=== PATIENT | male | born 1940 | race Caucasian/White ===

== ENCOUNTER 2017-01-09 13:30 | Inpatient (IN) | payer OTHER ==
[2017-01-09] MEDS ORDERED: MAGNESIUM HYDROXIDE 30 ML UDCUP PO PRN (17:18)
[2017-01-09] MEDS ORDERED: LORazepam 0.5 MG TAB PO PRN (17:18)
[2017-01-09] MEDS ORDERED: ACETAMINOPHEN 325 MG TAB PO PRN (17:18)
[2017-01-09] MEDS ORDERED: MAG HYDROX/AL HYDROX/SIMETH 30 ML UDCUP PO PRN (17:18)
--- NOTE | 2017-01-09 18:36 | BAPA ---
[f rep st] ADMISSION PSYCHIATRIC ASSESSMENT DATE OF SERVICE: 01/09/2017 REASON FOR ADMISSION: The patient is a 76-year-old male, well known to us from previous ad missions, as well as ongoing outpatient maintenance ECT treatment. He presented last week with his w matthew, stating that he had been slipping into a familiar nearly catatonic state, where he will withdraw , quit talking, have trouble forming thoughts, and not take care of himself. He received 2 ECT treat ments last week, which seemed to help, but then over the weekend he has further declined. His s tates that on Monday, the date of his last ECT treatment, he was very flat and did not speak from Mon until Monday morning. She states that he was not engaging, would not answer questions, and she h ad trouble getting him to eat or bathe himself. On Monday morning, he got up, seemed somewhat better , was minimally conversant and mowed the lawn. Later in the day, he rapidly declined, however, and b ecame noncommunicative again. Today on interview, he is unable to describe how he feels, does not ma ke meaningful eye contact, is notably tremulous, and has extreme difficulty making any decisions. Hi s indicates that she believes he needs to be hospitalized, as these are the symptoms he has exhi bited in the past when he has entered a catatonic state. The patient is agreeable to hospitalization at this time, stating, "I'll do whatever she says." PAST PSYCHIATRIC HISTORY: The patient's most recent hospitalization was here from 12/11/15 to under my care at that time. He was exhibiting similar symptoms. At that time, his stressor was h is undergoing a back surgery, which he was extremely worried about. This time, there appear to be no specific stressors. He has a history of multiple hospitalizations in [place] [facility] throughout his life and has had maintenance ECT for approximately the last 7 years. He has been a patient of mine at the [facility] for the last 3-1/2 years, doing every 3- to 5-week m aintenance ECT. ALLERGIES: No known medical allergies. CURRENT MEDICATIONS: Aspirin 81 mg daily, vitamin D 2000 units daily, Lamictal 100 mg q.h.s., Ativan 0.25 mg in the morning and 0.5 mg in the evening, nortriptyline 100 mg q.h.s., bicarb one daily, Tyson max 0.4 mg daily, valsartan-hydrochlorothiazide one half daily. PAST MEDICAL HISTORY: Significant for hypertension and benign prostatic hypertrophy. SOCIAL HISTORY: The patient has been for 23 years, has 3 children of his own. His has 2 sons, who live locally and are their primary supports. 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 He moved to [place] in 2012 to be closer to his wi fe's family. SUBSTANCE ABUSE HISTORY: Noncontributory. FAMILY HISTORY: Noncontributory. ADMISSION LABS: Pending. MENTAL STATUS EXAMINATION: A somewhat disheveled, though healthy-appearing male. He inter acts poorly, maintaining poor eye contact and having extreme difficulty answering questions. His aff ect is blunted, stable. His mood is described as "not too good." His thought process is somewhat di sorganized, struggling to give goal-directed answers to questions. His thought content reveals no ov ert psychosis. He is alert and oriented to person, place, time, and situation, and his sensorium is clear, though he has a notable delay in response. His intellect is at least average, as evidenced by his fund of knowledge, vocabulary, educational and occupational histories. He denies any thoughts o f suicide, homicide, or violence. Insight and judgment appear to be good. IMPRESSION: Bipolar I disorder, most recent episodes mixed, with psychosis, possible early catatonia , hypertension, benign prostatic hypertrophy, recurrent illness, chronic illness. The patient is a pleasant 76-year-old male, well known to me from previous inpatient and ou tpatient treatments. He presents at this time with burgeoning catatonia, and I agree with his t hat inpatient hospitalization and abbreviated acute course of ECT is his best treatment option. The patient is agreeable to this. PLAN: 1. Admit to the behavioral health services inpatient unit on a voluntary basis. 2. Continue the patient's outpatient medications as previously prescribed. 3. Initiate acute course ECT treatment this week, at least Monday, Monday, Monday, and see how th e patient does. May continue for another week if no adequate response. ESTIMATED LENGTH OF STAY: 7-14 days. /[id number]/MODL
--- NOTE | 2017-01-09 18:36 | BAPA ---
[f rep st] ADMISSION PSYCHIATRIC ASSESSMENT DATE OF SERVICE: 01/09/2017 REASON FOR ADMISSION: The patient is a 76-year-old male, well known to us from previous ad missions, as well as ongoing outpatient maintenance ECT treatment. He presented last week with his w matthew, stating that he had been slipping into a familiar nearly catatonic state, where he will withdraw , quit talking, have trouble forming thoughts, and not take care of himself. He received 2 ECT treat ments last week, which seemed to help, but then over the weekend he has further declined. His s tates that on Monday, the date of his last ECT treatment, he was very flat and did not speak from Mon until Monday morning. She states that he was not engaging, would not answer questions, and she h ad trouble getting him to eat or bathe himself. On Monday morning, he got up, seemed somewhat better , was minimally conversant and mowed the lawn. Later in the day, he rapidly declined, however, and b ecame noncommunicative again. Today on interview, he is unable to describe how he feels, does not ma ke meaningful eye contact, is notably tremulous, and has extreme difficulty making any decisions. Hi s indicates that she believes he needs to be hospitalized, as these are the symptoms he has exhi bited in the past when he has entered a catatonic state. The patient is agreeable to hospitalization at this time, stating, "I'll do whatever she says." PAST PSYCHIATRIC HISTORY: The patient's most recent hospitalization was here from 12/11/15 to under my care at that time. He was exhibiting similar symptoms. At that time, his stressor was h is undergoing a back surgery, which he was extremely worried about. This time, there appear to be no specific stressors. He has a history of multiple hospitalizations [place] [facility] throughout his life and has had maintenance ECT for approximately the last 7 years. He has been a patient of mine at the [facility] for the last 3-1/2 years, doing every 3- to 5-week m aintenance ECT. ALLERGIES: No known medical allergies. CURRENT MEDICATIONS: Aspirin 81 mg daily, vitamin D 2000 units daily, Lamictal 100 mg q.h.s., Ativan 0.25 mg in the morning and 0.5 mg in the evening, nortriptyline 100 mg q.h.s., bicarb one daily, Tyson max 0.4 mg daily, valsartan-hydrochlorothiazide one half daily. PAST MEDICAL HISTORY: Significant for hypertension and benign prostatic hypertrophy. SOCIAL HISTORY: The patient has been for 23 years, has 3 children of his own. His has 2 sons, who live locally and are their primary supports. 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 He moved to [place] in 2012 to be closer to his wi fe's family. SUBSTANCE ABUSE HISTORY: Noncontributory. FAMILY HISTORY: Noncontributory. ADMISSION LABS: Pending. MENTAL STATUS EXAMINATION: A somewhat disheveled, though healthy-appearing male. He inter acts poorly, maintaining poor eye contact and having extreme difficulty answering questions. His aff ect is blunted, stable. His mood is described as "not too good." His thought process is somewhat di sorganized, struggling to give goal-directed answers to questions. His thought content reveals no ov ert psychosis. He is alert and oriented to person, place, time, and situation, and his sensorium is clear, though he has a notable delay in response. His intellect is at least average, as evidenced by his fund of knowledge, vocabulary, educational and occupational histories. He denies any thoughts o f suicide, homicide, or violence. Insight and judgment appear to be good. IMPRESSION: Bipolar I disorder, most recent episodes mixed, with psychosis, possible early catatonia , hypertension, benign prostatic hypertrophy, recurrent illness, chronic illness. The patient is a pleasant 76-year-old male, well known to me from previous inpatient and ou tpatient treatments. He presents at this time with burgeoning catatonia, and I agree with his t hat inpatient hospitalization and abbreviated acute course of ECT is his best treatment option. The patient is agreeable to this. PLAN: 1. Admit to the behavioral health services inpatient unit on a voluntary basis. 2. Continue the patient's outpatient medications as previously prescribed. 3. Initiate acute course ECT treatment this week, at least Monday, Monday, Monday, and see how th e patient does. May continue for another week if no adequate response. ESTIMATED LENGTH OF STAY: 7-14 days. /[id number]/MODL
[2017-01-09] MEDS: NORTRIPTYLINE HCL 50 MG CAP PO SCH (20:54)
[2017-01-09] MEDS: lamoTRIgine 100 MG TAB PO SCH (20:55)
[2017-01-09] MEDS: LORazepam 1 MG TAB PO SCH (20:55)
[2017-01-09] MEDS: OLANZapine 10 MG TAB PO SCH (20:55)
[2017-01-09] MEDS: ASPIRIN 81 MG CHEWABLE TAB PO SCH (20:55)
[2017-01-10 08:22] LABS: PLATELET COUNT 257 10^3/uL (150-400)
[2017-01-10] MEDS: LORazepam 1 MG TAB PO SCH ×2 (08:45→18:42)
[2017-01-10] MEDS: TAMSULOSIN HCL 0.4 MG CAP PO SCH (08:45)
--- NOTE | 2017-01-10 14:01 | SOAPPROG ---
SOAP Progress Note Assessment/Plan: Assessment: Plan: 01/10/17 14:03 Remains quite ill with soft signs of catatonia. Will continue ECT, monitor closely. If no proximal improvement will hold Zyprexa. Subjective: Pt seen, discussed with staff. Sitting in his room, looking at his journal. He is engaging, but clearly struggling to follow conversation. He asks several tangential questions such as, "How is ECT today?" and "We have to wind our way to the clinic from here." He offers no c/o's. Slept adequately last night. Spending most of his time in his room. Struggles to interact appropriately with others. He attempts to write down verbatim what I say, though can only retain one word of each sentence. Objective: Vital Signs Temp Pulse Resp BP Pulse Ox 36.7 C 96 16 155/78 H 93 01/10/17 06:00 01/10/17 06:00 01/10/17 06:00 01/10/17 06:00 01/10/17 06:00 Laboratory Results 01/10/17 06:00 01/10/17 06:00 MSE: Notable psychomotor retardation with diffuse tremors. Eye contact is intermittent. Affect is constricted, stable. Mood is "not too good." TP is linear for brief periods, but he exhibits notable blocking and delay. - Time Spent With Patient Time Spent With Patient: 25" ICD10 Worksheet Patient Problems: Problems Problem Status Onset Bipolar I disorder depressed with catatonic features Acute
[2017-01-10] MEDS: NORTRIPTYLINE HCL 50 MG CAP PO SCH (18:42)
[2017-01-10] MEDS: lamoTRIgine 100 MG TAB PO SCH (18:43)
[2017-01-10] MEDS: OLANZapine 10 MG TAB PO SCH (18:43)
[2017-01-10] MEDS: ASPIRIN 81 MG CHEWABLE TAB PO SCH (18:43)
[2017-01-11] MEDS ORDERED: NS 1,000 ML IV ONE (04:00)
[2017-01-11] MEDS ORDERED: THEOPHYLLINE ORAL SOLUTION 80 MG/15 ML UDCUP PO ONE (04:00)
[2017-01-11] MEDS ORDERED: CITRIC ACID/SODIUM CITRATE 30 ML UDCUP PO ONE (04:00)
[2017-01-11] MEDS ORDERED: LIDOCAINE 2% 5 ML SDV ID ONE (04:00)
[2017-01-11] MEDS ORDERED: ONDANSETRON DISINTEGRATING 4 MG TAB PO ONE (04:00)
[2017-01-11] MEDS: TAMSULOSIN HCL 0.4 MG CAP PO SCH (10:50)
[2017-01-11] MEDS: LORazepam 1 MG TAB PO SCH ×2 (10:50→21:04)
--- NOTE | 2017-01-11 15:24 | BCON ---
[f rep st] BEHAVIORAL HEALTH CONSULTATION DATE OF CONSULTATION: 01/11/2017 REFERRING PHYSICIAN: Tom Vargas MD REASON FOR REFERRAL: Medical clearance for inpatient behavioral [facility] stay. HISTORY OF PRESENT ILLNESS: This patient was recently discharged from inpatient behavioral health on 12/21/2016. He returned to the emergency department yesterday, brought by his , as he had decli carissa function and, as described by the psychiatrist, had "burgeoning catatonia." He was evaluated by the mental health team, was admitted for further psychiatric care, and has had 1 ECT treatment today . Currently, he reports he feels much better and he is without any acute complaints. PAST MEDICAL HISTORY: 1. Bipolar disorder. 2. Hypertension. 3. Benign prostatic hypertrophy. PAST SURGICAL HISTORY: He reports a history of hernia surgery. MEDICATIONS: Prior to admission: 1. Multivitamin daily. 2. Lorazepam 0.5 mg daily p.r.n., and 0.5 mg q.h.s. 3. Lamotrigine 100 mg p.o. q.h.s. 4. Olanzapine 10 mg p.o. q.h.s. 5. Aspirin 81 mg p.o. q.h.s. 6. Nortriptyline 100 mg p.o. q.h.s. 7. Valsartan/hydrochlorothiazide 80/12.5 one-half tablet p.o. daily. 8. Tamsulosin 0.4 mg p.o. daily. 9. Lorazepam 1 mg p.o. daily. 10. Cholecalciferol 2000 units p.o. daily. ALLERGIES: No known drug allergies. SOCIAL HISTORY: He is retired. He lives with his . He and has moved to [place] to be [place] to her adult children. He is a former smoker but does not smoke, and he does not use alcohol. FAMILY HISTORY: Noncontributory. REVIEW OF SYSTEMS: He denies snoring. He reports he sleeps well overall, but has nocturia x3. He i s not in pain. He denies cough or dyspnea, fevers or chills, weight change. He reports that at a re cent physical exam, his doctor noted an irregular heartbeat, but said that it was not significant. H e does not feel palpitations. He has no chest pain. Otherwise, a 10-point review of systems is nega tive. PHYSICAL EXAMINATION: VITAL SIGNS: Blood pressure is 112/63, heart rate is 85, respiratory rate is 16, oxygen saturation is 95% on room air, temperature is 36.7 degrees centigrade. Weight is 87.7 kg for a body mass index of 27.1. GENERAL: This is an overweight elderly man who appears his chronolog ic age, cooperative and in no acute distress. HEENT: Extraocular movements are intact. Pupils are equal, round, and reactive to light. Mucous membranes are moist. Dentition is in good condition. H cisco has a mildly crowded airway, Mallampati class 1. NECK: Supple. HEART: Regular rate and rhythm w ith no murmurs, rubs, or gallops; mildly tachycardic. LUNGS: Clear to auscultation bilaterally. AB DOMEN: Benign. EXTREMITIES: No cyanosis, clubbing, or edema. NEUROLOGIC: He is alert. Orientati on was not checked. He has some word substitution and some word-finding difficulty. Cranial nerves 2 through 12 are grossly intact. No focal weakness. Sensation is intact to light touch. Gait is wi thin normal limits. He has a resting tremor greater on the left upper extremity than the right upper extremity. LABORATORY STUDIES: Drawn in the emergency department: CBC was overall within normal limits. He gregorio d a slight decrement of absolute lymphocytes and a slight increase in absolute monocytes of no clinic al significance. Serum chemistry revealed normal renal function, liver function, and electrolytes. Total protein was slightly low at 6.0 with a normal albumin. ASSESSMENT/RECOMMENDATIONS: 1. Bipolar disorder, undergoing electroconvulsive therapy per Psychiatry. 2. Hypertension appears to be adequately controlled. 3. Benign prostatic hypertrophy with nocturia x3. I have increased his tamsulosin from 0.4 to 0.8 m g. Observe for hypotension and observe for efficacy. If he continues to have nocturia x3, would red uce the dose to 0.4 mg. Of note, he is taking a large dose of nortriptyline, which can cause bladder emptying difficulty; however, I will leave any decisions regarding psychiatric medications to the di scretion of Psychiatry. 4. Self report of a cardiac dysrhythmia. He has a regular rhythm on examination today. Consider re peat EKG, especially as he is undergoing electroconvulsive therapy. I see no medical contraindications to this patient's continued stay [facility] or to any psychiatric medications or procedures. Thank you very much for including me in the care of this patient and please do not hesitate to contac t me or the hospitalists service should there be need for further medical evaluation. /[id number]/MODL
--- NOTE | 2017-01-11 17:34 | SOAPPROG ---
SOAP Progress Note Assessment/Plan: Assessment: Plan: 01/10/17 14:03 Remains quite ill with soft signs of catatonia. Will continue ECT, monitor closely. If no proximal improvement will hold Zyprexa. 01/11/17 17:34 Bipolar: remains in a severe mixed state with some evidence of early catatonia. Will CCM. Subjective: Pt seen, discussed with staff. Remains withdrawn, mute, internally focused, perseverative, delayed. He is more interactive, spontaneous and fluent this morning but remains significantly short of baseline. Offers no c/o's. Underwent RUL UBP ECT without complication. Objective: Vital Signs Temp Pulse Resp BP Pulse Ox 36.7 C 85 16 112/63 95 01/11/17 09:10 01/11/17 09:10 01/11/17 09:10 01/11/17 09:10 01/11/17 09:10 Laboratory Results 01/10/17 06:00 01/10/17 06:00 MSE: Calm, marginally interactive. Activity is slightly increased with notable tremor, restlessness and fidgeting. Affect is blunted to flat. Mood is "not too good." Eye contact is poor, tending to stare straight ahead. Remains internally focused, delayed in response to questions. No overt psychosis noted. 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
[2017-01-11] MEDS: NORTRIPTYLINE HCL 50 MG CAP PO SCH (21:03)
[2017-01-11] MEDS: ASPIRIN 81 MG CHEWABLE TAB PO SCH (21:04)
[2017-01-11] MEDS: lamoTRIgine 100 MG TAB PO SCH (21:04)
[2017-01-11] MEDS: OLANZapine 10 MG TAB PO SCH (21:04)
[2017-01-12] MEDS: LORazepam 1 MG TAB PO SCH ×2 (09:23→16:40)
[2017-01-12] MEDS: TAMSULOSIN HCL 0.4 MG CAP PO SCH (09:23)
[2017-01-12] MEDS: NORTRIPTYLINE HCL 50 MG CAP PO SCH (16:40)
[2017-01-12] MEDS: lamoTRIgine 100 MG TAB PO SCH (16:40)
[2017-01-12] MEDS: OLANZapine 10 MG TAB PO SCH (16:40)
[2017-01-12] MEDS: ASPIRIN 81 MG CHEWABLE TAB PO SCH (16:41)
--- NOTE | 2017-01-12 21:34 | SOAPPROG ---
SOAP Progress Note Assessment/Plan: Assessment: Plan: 01/10/17 14:03 Remains quite ill with soft signs of catatonia. Will continue ECT, monitor closely. If no proximal improvement will hold Zyprexa. 01/11/17 17:34 Bipolar: remains in a severe mixed state with some evidence of early catatonia. Will CCM. 01/12/17 21:34 Bipolar: Improving with ECT. CCM. Subjective: Pt seen, discussed with staff and pt's . He is more alert, interact and appropriate today. notes significant improvement since admission. Less delayed, more spontaneous. Objective: Vital Signs Temp Pulse Resp BP Pulse Ox 38.4 C H 79 18 123/73 H 95 01/12/17 16:00 01/12/17 16:00 01/12/17 16:00 01/12/17 16:00 01/12/17 16:00 Laboratory Results 01/10/17 06:00 01/10/17 06:00 - Time Spent With Patient Time Spent With Patient: 25" ICD10 Worksheet Patient Problems: Problems Problem Status Onset Bipolar I disorder depressed with catatonic features Acute
[2017-01-13] MEDS ORDERED: LIDOCAINE 2% 5 ML SDV ID ONE (05:00)
[2017-01-13] MEDS ORDERED: ONDANSETRON DISINTEGRATING 4 MG TAB PO ONE (05:00)
[2017-01-13] MEDS ORDERED: CITRIC ACID/SODIUM CITRATE 30 ML UDCUP PO ONE (05:00)
[2017-01-13] MEDS ORDERED: THEOPHYLLINE ORAL SOLUTION 80 MG/15 ML UDCUP PO ONE ×2 (05:00→09:30)
[2017-01-13] MEDS ORDERED: NS 1,000 ML IV ONE (05:00)
[2017-01-13] MEDS ORDERED: MIDAZOLAM 2 MG/2 ML VIAL ONE (06:02)
[2017-01-13] MEDS ORDERED: GLYCOPYRROLATE 0.2 MG/1 ML VIAL ONE (06:02)
[2017-01-13] MEDS ORDERED: ONDANSETRON 4 MG/2 ML VIAL ONE (06:02)
[2017-01-13] MEDS ORDERED: fentaNYL 100 MCG/2 ML INJ ONE (06:02)
[2017-01-13] MEDS ORDERED: ETOMIDATE 20 MG/10 ML VIAL ONE (06:02)
[2017-01-13] MEDS ORDERED: ROCURONIUM 50 MG/5 ML VIAL ONE (06:03)
[2017-01-13] MEDS ORDERED: SUCCINYLCHOLINE CHLORIDE 200 MG/10 ML VIAL ONE (06:03)
[2017-01-13] MEDS: TAMSULOSIN HCL 0.4 MG CAP PO SCH (14:37)
[2017-01-13] MEDS: LORazepam 1 MG TAB PO SCH ×2 (14:40→20:23)
[2017-01-13] MEDS: NORTRIPTYLINE HCL 50 MG CAP PO SCH (20:22)
[2017-01-13] MEDS: lamoTRIgine 100 MG TAB PO SCH (20:23)
[2017-01-13] MEDS: ASPIRIN 81 MG CHEWABLE TAB PO SCH (20:23)
[2017-01-13] MEDS: OLANZapine 10 MG TAB PO SCH (20:23)
--- NOTE | 2017-01-13 23:09 | SOAPPROG ---
SOAP Progress Note Assessment/Plan: Assessment: Plan: 01/10/17 14:03 Remains quite ill with soft signs of catatonia. Will continue ECT, monitor closely. If no proximal improvement will hold Zyprexa. 01/11/17 17:34 Bipolar: remains in a severe mixed state with some evidence of early catatonia. Will [facility]. 01/12/17 21:34 Bipolar: Improving with ECT. [facility]. 01/13/17 23:10 Bipolar: Continued improvement. I agree that a few more days to allow more solid recovery is in patient's best interest. Will treat Monday and reassess. Subjective: Pt seen, discussed with staff. Reports feeling "a lot better". Pt's and step-son see him as improving as well, though believe he could benefit from staying longer in the hospital to avoid any backsliding in re: risk for linda catatonia. Pt agreeable to staying if needed. Underwent ECT with no complications. Objective: Vital Signs Temp Pulse Resp BP Pulse Ox 36.7 C 68 12 133/84 H 92 01/13/17 16:00 01/13/17 16:00 01/13/17 13:21 01/13/17 16:00 01/13/17 13:21 Laboratory Results 01/10/17 06:00 01/10/17 06:00 MSE: Calm, coop, appropriately interactive. Affect is brighter, stalbe, approp. Mood is "better." TP generallly linear, less derailment or blocking. TC reveals no psychosis. A/C much better. 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
--- NOTE | 2017-01-13 23:09 | SOAPPROG ---
SOAP Progress Note Assessment/Plan: Assessment: Plan: 01/10/17 14:03 Remains quite ill with soft signs of catatonia. Will continue ECT, monitor closely. If no proximal improvement will hold Zyprexa. 01/11/17 17:34 Bipolar: remains in a severe mixed state with some evidence of early catatonia. Will [facility]. 01/12/17 21:34 Bipolar: Improving with ECT. [facility]. 01/13/17 23:10 Bipolar: Continued improvement. I agree that a few more days to allow more solid recovery is in patient's best interest. Will treat Monday and reassess. Subjective: Pt seen, discussed with staff. Reports feeling "a lot better". Pt's and step-son see him as improving as well, though believe he could benefit from staying longer in the hospital to avoid any backsliding in re: risk for linda catatonia. Pt agreeable to staying if needed. Underwent ECT with no complications. Objective: Vital Signs Temp Pulse Resp BP Pulse Ox 36.7 C 68 12 133/84 H 92 01/13/17 16:00 01/13/17 16:00 01/13/17 13:21 01/13/17 16:00 01/13/17 13:21 Laboratory Results 01/10/17 06:00 01/10/17 06:00 MSE: Calm, coop, appropriately interactive. Affect is brighter, stalbe, approp. Mood is "better." TP generallly linear, less derailment or blocking. TC reveals no psychosis. A/C much better. 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
--- NOTE | 2017-01-13 23:09 | SOAPPROG ---
SOAP Progress Note Assessment/Plan: Assessment: Plan: 01/10/17 14:03 Remains quite ill with soft signs of catatonia. Will continue ECT, monitor closely. If no proximal improvement will hold Zyprexa. 01/11/17 17:34 Bipolar: remains in a severe mixed state with some evidence of early catatonia. Will [facility]. 01/12/17 21:34 Bipolar: Improving with ECT. [facility]. 01/13/17 23:10 Bipolar: Continued improvement. I agree that a few more days to allow more solid recovery is in patient's best interest. Will treat Monday and reassess. Subjective: Pt seen, discussed with staff. Reports feeling "a lot better". Pt's and step-son see him as improving as well, though believe he could benefit from staying longer in the hospital to avoid any backsliding in re: risk for linda catatonia. Pt agreeable to staying if needed. Underwent ECT with no complications. Objective: Vital Signs Temp Pulse Resp BP Pulse Ox 36.7 C 68 12 133/84 H 92 01/13/17 16:00 01/13/17 16:00 01/13/17 13:21 01/13/17 16:00 01/13/17 13:21 Laboratory Results 01/10/17 06:00 01/10/17 06:00 MSE: Calm, coop, appropriately interactive. Affect is brighter, stalbe, approp. Mood is "better." TP generallly linear, less derailment or blocking. TC reveals no psychosis. A/C much better. 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
[2017-01-14] MEDS: TAMSULOSIN HCL 0.4 MG CAP PO SCH (09:07)
[2017-01-14] MEDS: LORazepam 1 MG TAB PO SCH ×2 (09:07→20:38)
--- NOTE | 2017-01-14 12:23 | SOAPPROG ---
SOAP Progress Note Assessment/Plan: Assessment: 76yo CM, w/BMD, , with long hx maintenance ECT, admitted in mixed state with possible early catatonic features 01/14/17 12:30 per staff, slept 8hr. had ECT yesterday. pleasant, friendly and more talkative. on interview, reports doing well. feels "50 to 75%" better than on admission. reports plan is for ECT on 01/16 then d/c home with . denied any medication s /e, no physical complaints, and no problems post-ECT except had headache, no longer present. sleeping "very well". joined. reports pt doing "much better". asks about if any med changes on d/ c from prior to admission. referred to d/w primary psychiatrist during week. hopeful for d/c home as planned 01/16. both express being very pleased with their care/treatment here. MSE: engaging. cooperative, casually dressed, neatly groomed bernal, speech nml rate/vol, good ec, mood "pretty good", affect full range. denied psychotic sxs, no si/hi or any delusional/paranoid thoughts. i/j seem intact. PLAN: cont current meds and plan for ECT on 01/16, and likely d/c 01/16 Objective: Vital Signs Temp Pulse Resp BP Pulse Ox 36.6 C 97 16 125/60 H 94 01/14/17 00:30 01/14/17 00:30 01/14/17 00:30 01/14/17 00:30 01/14/17 00:30 Laboratory Results 01/10/17 06:00 01/10/17 06:00 Medications Generic Name Dose Route Start Last Admin Trade Name Freq PRN Reason Stop Dose Admin Lorazepam 1 mg 01/09/17 21:00 01/14/17 09:07 Ativan PO 07/08/17 20:59 1 mg BID SEAN Nortriptyline HCl 100 mg 01/09/17 21:00 01/13/17 20:22 Pamelor PO 07/08/17 20:59 100 mg HS SEAN Olanzapine 10 mg 01/09/17 21:00 01/13/17 20:23 Olanzapine PO 07/08/17 20:59 10 mg HS SEAN Tamsulosin HCl 0.8 mg 01/11/17 14:17 01/14/17 09:07 Flomax PO 07/09/17 08:59 0.8 mg DAILY SEAN Lamotrigine 100 mg 01/09/17 21:00 01/13/17 20:23 Lamictal PO 07/08/17 20:59 100 mg HS SEAN Aspirin 81 mg 01/09/17 21:00 01/13/17 20:23 Aspirin PO 07/08/17 20:59 81 mg HS SEAN - Time Spent With Patient Time Spent With Patient: 25min - Pending Discharge Pending Discharge Within 24 Hours: No Pending Discharge Within 48 Hours: No ICD10 Worksheet Patient Problems: Problems Problem Status Onset Bipolar I disorder depressed with catatonic features Acute
[2017-01-14] MEDS: NORTRIPTYLINE HCL 50 MG CAP PO SCH (20:38)
[2017-01-14] MEDS: OLANZapine 10 MG TAB PO SCH (20:38)
[2017-01-14] MEDS: ASPIRIN 81 MG CHEWABLE TAB PO SCH (20:38)
[2017-01-14] MEDS: lamoTRIgine 100 MG TAB PO SCH (20:38)
[2017-01-15] MEDS: TAMSULOSIN HCL 0.4 MG CAP PO SCH (09:21)
[2017-01-15] MEDS: LORazepam 1 MG TAB PO SCH ×2 (09:22→19:07)
[2017-01-15] MEDS: OLANZapine 10 MG TAB PO SCH (19:07)
[2017-01-15] MEDS: ASPIRIN 81 MG CHEWABLE TAB PO SCH (19:07)
[2017-01-15] MEDS: NORTRIPTYLINE HCL 50 MG CAP PO SCH (19:07)
[2017-01-15] MEDS: lamoTRIgine 100 MG TAB PO SCH (19:08)
--- NOTE | 2017-01-16 01:47 | SOAPPROG ---
SOAP Progress Note Assessment/Plan: Assessment: 76yo CM, w/BMD, , with long hx maintenance ECT, admitted in mixed state with possible early catatonic features 01/14/17 12:30 per staff, slept 8hr. had ECT yesterday. pleasant, friendly and more talkative. on interview, reports doing well. feels "50 to 75%" better than on admission. reports plan is for ECT on 01/16 then d/c home with . denied any medication s /e, no physical complaints, and no problems post-ECT except had headache, no longer present. sleeping "very well". joined. reports pt doing "much better". asks about if any med changes on d/ c from prior to admission. referred to d/w primary psychiatrist during week. hopeful for d/c home as planned 01/16. both express being very pleased with their care/treatment here. MSE: engaging. cooperative, casually dressed, neatly groomed bernal, speech nml rate/vol, good ec, mood "pretty good", affect full range. denied psychotic sxs, no si/hi or any delusional/paranoid thoughts. i/j seem intact. PLAN: cont current meds and plan for ECT on 01/16, and likely d/c 01/1601/15/17 12:41 per staff, slept 9hr. has been generally isolative, but milieu has been intense. didn't attend group this AM. MSE: calm, cooperative, good eye contact, nml psychom activity, neat/groomed, engaging, nml speech rate/vol. mood "doing well", affect euthymic, thoughts linear, no evid of psychosis, denied any si/hi or ah/vh. i/j seem intact. denied physical complaints or any med s/e although reports was constipated, but this resolved recently. 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
[2017-01-16] MEDS ORDERED: NS 1,000 ML IV ONE (06:00)
[2017-01-16] MEDS ORDERED: ONDANSETRON DISINTEGRATING 4 MG TAB PO ONE (06:00)
[2017-01-16] MEDS ORDERED: CITRIC ACID/SODIUM CITRATE 30 ML UDCUP PO ONE (06:00)
[2017-01-16] MEDS ORDERED: THEOPHYLLINE ORAL SOLUTION 80 MG/15 ML UDCUP PO ONE (06:00)
[2017-01-16] MEDS ORDERED: LIDOCAINE 2% 5 ML SDV ID ONE (06:00)
[2017-01-16] MEDS ORDERED: fentaNYL 100 MCG/2 ML INJ ONE (09:07)
[2017-01-16] MEDS ORDERED: MIDAZOLAM 2 MG/2 ML VIAL ONE (09:07)
[2017-01-16] MEDS ORDERED: ETOMIDATE 20 MG/10 ML VIAL ONE (09:07)
[2017-01-16] MEDS ORDERED: CITRIC ACID/SODIUM CITRATE 30 ML UDCUP ONE (09:07)
[2017-01-16] MEDS ORDERED: ONDANSETRON DISINTEGRATING 4 MG TAB ONE (09:07)
[2017-01-16] MEDS ORDERED: SUCCINYLCHOLINE CHLORIDE 200 MG/10 ML VIAL ONE (09:08)
[2017-01-16 10:20] VITALS: BP 162/88; PULSE 95; RESP 20; TEMP 97.5; O2SAT 95
[2017-01-16] MEDS: TAMSULOSIN HCL 0.4 MG CAP PO SCH (11:33)
[2017-01-16] MEDS: LORazepam 1 MG TAB PO SCH (11:46)
== END 2017-01-16 12:35 | disposition home or self-care (01) | DRG 885 ==
LOC: BBEH 13:30
PROVIDERS: ADMIT Psychiatry & Neurology Psychiatry; ATTEND Psychiatry & Neurology Psychiatry
PROC: GZB4ZZZ Other Electroconvulsive Therapy (ICD-10-PCS; principal; 2017-01-09)
DX: F31.64 Bipolar disorder, current episode mixed, severe, with psychotic features (principal); N40.1 Benign prostatic hyperplasia with lower urinary tract symptoms; R35.1 Nocturia; I10 Essential (primary) hypertension; Z87.891 Personal history of nicotine dependence
CPT/HCPCS: J0330; J2250; J2405; J3010